=== PATIENT | female | born 1970 | race Caucasian/White ===

== ENCOUNTER 2017-01-28 11:47 | Inpatient (IN) | payer MEDICAID ==
[~2017-01-28] VITALS: Ht 162.6 cm; Wt 97.7 kg
[2017-01-28 11:50] VITALS: Ht 162.6 cm; Wt 97.7 kg
[2017-01-28] MEDS ORDERED: PREN1TAB17 PO (12:01)
--- NOTE | 2017-01-28 12:57 | RADRPT ---
PROCEDURE: OB ultrasound for biophysical profile CLINICAL INDICATION: PIH. TECHNIQUE: Multiple sonographic images of the pelvis were obtained. Transabdominal view of the gr avid uterus are available for review. The images were reviewed on a PACS workstation. COMPARISON: None FINDINGS: breathing movement = 2/2 tone = 2/2 motion = 2/2 Quantitative amniotic fluid volume = 0/2 HOLLIE = 2.1 cm Single live intrauterine with cardiac activity at 179 beats per minute. There is a anterior placenta without previa or abruption. IMPRESSION: 1. Single living intrauterine gestation in cephalic position. 2. Biophysical profile = 8. 3. HOLLIE = 2.1 cm consistent with oligohydramnios. Note: A call report was made to Peggy QUINONES on 01/28/2017 12:56:14 PM. RPTAT: [facility] Physician Mohit Date Time Electronically viewed and signed by Physician Mohit on 01/28/2017 12:57 CHANTELL/
[2017-01-28 13:03] LABS: BASOPHILS % 0.3 % (0.0-2.0); EOSINOPHILS # 0.1 10^3/ul (0.0-0.5); EOSINOPHILS % 0.6 % (0.0-7.0); HEMATOCRIT 35.8 % (37.0-47.0); HEMOGLOBIN 11.5 g/dl (12.0-16.0); LYMPHOCYTES # 1.6 10^3/ul (0.8-2.9); LYMPHOCYTES % 17.5 % (15.0-51.0); MEAN CORPUSCULAR HEMOGLOBIN 28.8 pg (29.0-33.0); MEAN CORPUSCULAR HGB CONC 32.1 g/dl (32.0-37.0); MEAN CORPUSCULAR VOLUME 89.5 fl (82.0-101.0); MONOCYTE # 0.5 10^3/ul (0.3-0.9); MONOCYTES % 5.4 % (0.0-11.0); NEUTROPHIL # 6.7 10^3/ul (1.6-7.5); NEUTROPHILS % 75.2 % (39.0-77.0); PLATELET COUNT 346 10^3/UL (140-415); WHITE BLOOD COUNT 8.9 10^3/ul (4.8-10.8)
[2017-01-28 13:23] LABS: ALBUMIN 3.4 g/dl (3.3-4.9); ALBUMIN/GLOBULIN RATIO 1.03; BILIRUBIN,INDIRECT 0.2 mg/dl (0-1.1); BILIRUBIN,TOTAL 0.2 mg/dl (0.2-1.3); CALCIUM 8.9 mg/dl (8.4-10.2); CREATININE 0.63 mg/dl (0.44-1.00); POTASSIUM 3.8 mmol/L (3.5-5.1); TOTAL PROTEIN 6.7 g/dl (6.1-8.1); URIC ACID 4.8 mg/dl (3.1-7.9)
--- NOTE | 2017-01-28 13:28 | TRIAGE ---
OB Triage Datetime Report Generated by CPN: 01/28/2017 13:27 Datetime: 01/28/2017 13:13 Labor Evaluation Frequency: 0 Pattern: Normal: <= 5 Contractions in 10 Minutes Heart Rate FHR Baseline Rate: 155 Monitor Mode: External US Variability: Moderate 6-25 bpm Accelerations: 15X15 Decelerations: None Category: Category I Pain Presence: None/Denies Pain Type: N/A Datetime: 01/28/2017 12:35 Comments: US AT BEDSIDE Datetime: 01/28/2017 12:04 Stage of : OB Triage Assessment Type: Triage Maternal Assessment Level of Consciousness: Fully Conscious DTR's/Clonus: DTRs 2+; No Clonus Headache: Denies Blurred Vision: No Respiratory Effort: Unlabored; Regular Rhythm; Equal Expansion Breath Sounds, Left: Clear and Equal Breath Sounds, Right: Clear and Equal Nausea/Vomiting: Denies RUQ Epigastric Pain: Denies Lower Extremities Edema: Bilateral Lower Extremities Degree: 1+ Upper Extremities Edema: None Degree: None Facial Edema: None Temperature Route: Oral Fall Risk Assessment History of Falling: (0) No Secondary Diagnosis: (0) No Ambulatory Aid: (0) Bedrest/Nurse Assist IV Therapy: (0) No Gait: (0) Normal/Bedrest/Immobile Mental Status: (0) Oriented to Own Ability Fall Score: 0 Fall Risk Score Definition: No Risk: No action required Labor Evaluation Frequency: 0 Monitor Mode: External Pattern: Normal: <= 5 Contractions in 10 Minutes Resting Tone [place]: Relaxed Heart Rate FHR Baseline Rate: 155 Monitor Mode: External US Variability: Moderate 6-25 bpm Accelerations: 15X15 Decelerations: None Category: Category I Pain Assessment Pain Scale: 0 Pain Presence: None/Denies Pain Type: N/A Datetime: 01/28/2017 12:02 Time of Arrival: 01/28/2017 11:40 EGA: 37.6 Arrived By: Ambulatory Arrived From: Dr. Marion Chief Complaint: SENT FROM CLINIC FOR ELEVATED B/P Movement: Present Contractions: Denies/Absent Rupture of Membranes: Denies Vaginal Bleeding: None Vaginal Discharge: Denies Recent Sexual Intercouse: Denies Abdominal Trauma: Not Applicable Time Provider Notified: 01/28/2017 13:22 Provider Notified: DR. COUGHLIN Initial Plan: [facility] WORK UP AND MONITORING
[2017-01-28] MEDS ORDERED: CARBOPROST 250 MCG INJ IM PRN ×2 (14:00→20:30)
[2017-01-28] MEDS ORDERED: METHYLERGONOVINE 0.2 MG INJ IM PRN ×2 (14:00→20:30)
[2017-01-28] MEDS ORDERED: BUTORPHANOL 2 MG INJ IV PRN ×2 (14:00→20:30)
[2017-01-28] MEDS ORDERED: MISOPROSTOL 200 MCG TAB PR PRN ×2 (14:00→20:30)
[2017-01-28] MEDS ORDERED: LIDOCAINE 1% (MPF) 30 ML INJ INJ PRN ×2 (14:00→20:30)
[2017-01-28] MEDS ORDERED: OXYTOCIN 30 UNITS/LR 500 ML IV PRN ×2 (14:00→20:30)
[2017-01-28] MEDS ORDERED: LACTATED RINGER'S 1,000 ML IV PRN ×2 (14:00→20:30)
[2017-01-28] MEDS ORDERED: OXYTOCIN 30 UNITS/LR 500 ML IV SCH ×6 (14:00→20:30)
[2017-01-28 14:49] LABS: ADD UMIC YES; UR ASCORBIC ACID NEGATIVE (NEGATIVE); UR BACTERIA FEW /HPF (NONE SEEN); UR BILIRUBIN (Dip) NEGATIVE (NEGATIVE); UR BLOOD (Dip) 1+ mg/dL (NEGATIVE); UR CLARITY CLEAR (CLEAR); UR COLOR YELLOW (YELLOW); UR GLUCOSE (Dip) NEGATIVE (NEGATIVE); UR KETONES (Dip) NEGATIVE (NEGATIVE); UR LEUKOCYTE ESTERASE (Dip) NEGATIVE Leu/ul (NEGATIVE); UR NITRITE (Dip) NEGATIVE (NEGATIVE); UR RBC 0 /HPF (0-5); UR SPECIFIC GRAVITY (Dip) 1.015 (1.003-1.030); UR TOTAL PROTEIN (Dip) NEGATIVE (NEGATIVE); UR UROBILINOGEN (Dip) NEGATIVE (NEGATIVE)
[2017-01-28] MEDS: LACTATED RINGER'S 1,000 ML IV SCH ×2 (15:13→17:00)
[2017-01-28 16:07] LABS: INR 1.02; PROTIME 13.4 Sec (12.2-14.2)
[2017-01-28 16:08] LABS: PARTIAL THROMBOPLASTIN TIME 28.1 Sec (25.0-35.0)
[2017-01-28] MEDS ORDERED: LACTATED RINGER'S 1,000 ML IV SCH (20:21)
[2017-01-28] MEDS ORDERED: IBUPROFEN 600 MG TAB PO PRN (20:30)
[2017-01-28] MEDS ORDERED: FENTAnyl 2MCG/ML-ROPIV 0.2% 100 ML ONE (22:00)
--- NOTE | 2017-01-28 22:27 | HP ---
Date/Time of Note Date/Time of Note DATE: 01/28/17 TIME: 22:26 OB - History Hx of Present Free Text/Dictation term induced for oligo Care: Good Care Ultrasounds: Normal mid trimester US Obstetrical Complications: None Medical Complications: None Past Family/Social History * Past Medical, Surgical, Family and Obstetric Histories reviewed from chart. OB Admission Exam Physical Exam HEENT: WNL Heart: Rhythm Normal Lungs: Clear, Equal Abdomen: WNL Extremities: Normal Reflexes: Normal Cervical Dilatation: 10cm Effacement: 100% Station: +3 Membranes: Ruptured Amniotic Fluid: Clear Heart Rate: 120's Accelerations: Accelerations Present Decelerations: No Decelerations Varibility: Moderate Contractions on Admission: 6-10 Minutes Apart Intensity: Moderate Last 72 hours Lab Results CBC & BMP 01/28/17 12:32 Liver Function Test 01/28/17 12:32 Alanine Aminotransferase (ALT/SGPT) 29 Albumin 3.4 Alkaline Phosphatase 131 H Aspartate Amino Transf (AST/SGOT) 27 Direct Bilirubin 0.00 Total Protein 6.7 OB Assessment/Plan Reason for admission: induction of labor Plan: Induction CLARISSA COUGHLIN MD Jan 28, 2017 22:27
--- NOTE | 2017-01-28 22:28 | LDN ---
Date/Time of Note Date/Time of Note DATE: 01/28/17 TIME: 22:28 Delivery Summary NSD W/O COMPLICATIONS Placenta Delivered: Spontaneously Meconium: none, Light Episiotomy: No Estimated blood loss: 300 Sponge & Needle done & correct: Yes All needle counts correct: Yes Any foreign bodies felt in the: No Problems: CLARISSA COUGHLIN MD Jan 28, 2017 22:28
[2017-01-29] VITALS: BP 140/92; PULSE 87; RESP 18
[2017-01-29] MEDS ORDERED: DIPHENHYDRAMINE 50 MG INJ IV PRN
[2017-01-29] MEDS ORDERED: FENTAnyl 2MCG/ML-ROPIV 0.2% 100 ML BAG EPI SCH
[2017-01-29] MEDS ORDERED: NALOXONE (0.4 MG/ML) INJ IV PRN
[2017-01-29] MEDS ORDERED: KETOROLAC 30 MG INJ IV PRN
[2017-01-29] MEDS ORDERED: HYDROmorphONE 0.5 MG/0.5 ML SYG IV PRN ×2
[2017-01-29] MEDS ORDERED: ONDANSETRON 4 MG INJ IV PRN
[2017-01-29] MEDS ORDERED: LACTATED RINGER'S 1,000 ML IV* SCH (00:17)
[2017-01-29] MEDS: OXYTOCIN 30 UNITS/LR 500 ML IV SCH ×2 (00:17→04:17)
[2017-01-29] MEDS ORDERED: BENZOCAINE 20% 56 ML SPRAY TOP PRN (00:30)
[2017-01-29] MEDS ORDERED: SENNA/DOCUSATE NA (8.6MG/50MG) TAB PO PRN (00:30)
[2017-01-29] MEDS ORDERED: METHYLERGONOVINE 0.2 MG INJ IM PRN (00:30)
[2017-01-29] MEDS ORDERED: ACETAMINOPHEN 325 MG TAB PO PRN (00:30)
[2017-01-29] MEDS ORDERED: DIPHENHYDRAMINE 25 MG CAP PO PRN (00:30)
[2017-01-29] MEDS ORDERED: WITCH HAZEL/GLYCERIN PAD PR PRN (00:30)
[2017-01-29] MEDS ORDERED: OXYTOCIN 30 UNITS/LR 500 ML IV PRN (00:30)
[2017-01-29] MEDS ORDERED: MISOPROSTOL 200 MCG TAB PR PRN (00:30)
[2017-01-29] MEDS ORDERED: LANOLIN 7 GM TUBE TOP PRN (00:30)
[2017-01-29] MEDS ORDERED: ZOLPIDEM 5 MG TAB PO PRN (00:30)
[2017-01-29] MEDS ORDERED: CARBOPROST 250 MCG INJ IM PRN (00:30)
[2017-01-29] MEDS ORDERED: HYDROCODONE/APAP (5/325) TAB PO PRN (00:30)
[2017-01-29] MEDS ORDERED: MAGNESIUM HYDROXIDE 30ML CUP PO PRN (00:30)
[2017-01-29 04:03] VITALS: BP 134/78; PULSE 84; RESP 18
[2017-01-29] MEDS: IBUPROFEN 800 MG TAB PO SCH ×4 (05:27→23:43)
[2017-01-29 08:15] VITALS: BP 110/53; PULSE 77; RESP 17
[2017-01-29 10:37] LABS: BASOPHILS % 0.4 % (0.0-2.0); EOSINOPHILS # 0.1 10^3/ul (0.0-0.5); EOSINOPHILS % 1.1 % (0.0-7.0); HEMATOCRIT 35.4 % (37.0-47.0); HEMOGLOBIN 11.7 g/dl (12.0-16.0); LYMPHOCYTES # 1.9 10^3/ul (0.8-2.9); LYMPHOCYTES % 19.2 % (15.0-51.0); MEAN CORPUSCULAR HEMOGLOBIN 29.4 pg (29.0-33.0); MEAN CORPUSCULAR HGB CONC 33.1 g/dl (32.0-37.0); MEAN CORPUSCULAR VOLUME 88.9 fl (82.0-101.0); MEAN PLATELET VOLUME 10.3 fl (7.4-10.4); MONOCYTE # 0.3 10^3/ul (0.3-0.9); MONOCYTES % 3.5 % (0.0-11.0); NEUTROPHIL # 7.4 10^3/ul (1.6-7.5); PLATELET COUNT 347 10^3/UL (140-415); RED BLOOD COUNT 3.98 10^6/ul (4.20-5.40); RED CELL DISTRIBUTION WIDTH 13.7 % (11.5-14.5); WHITE BLOOD COUNT 9.9 10^3/ul (4.8-10.8)
--- NOTE | 2017-01-29 11:48 | QN ---
Documentation Comment doing well d/c home tomorrow CLARISSA COUGHLIN MD Jan 29, 2017 11:48
--- NOTE | 2017-01-29 11:48 | DS ---
Date/Time of Note Date/Time of Note DATE: 01/29/17 TIME: 11:47 Discharge Summary Admission/Discharge Info Admit Date/Time Jan 28, 2017 at 13:22 Discharge Date/Time Discharge Diagnosis term . oligo hyrdramnios Patient Condition: Stable Hospital Course unremarkable Home Meds Reported Medications Vit-Iron Fumarate-FA ( Tablet) 1 Each Tablet, 1 TAB PO DAILY, TAB 01/28/17 Primary Care Provider Care Physician No Primary Pending Labs Laboratory Tests Test 01/28/17 12:32 01/28/17 13:57 01/28/17 15:02 01/29/17 10:09 White Blood Count 8.910^3/ul (4.8-10.8) 9.910^3/ul (4.8-10.8) Red Blood Count 4.0010^6/ul (4.20-5.40) 3.9810^6/ul (4.20-5.40) Hemoglobin 11.5g/dl (12.0-16.0) 11.7g/dl (12.0-16.0) Hematocrit 35.8% (37.0-47.0) 35.4% (37.0-47.0) Mean Corpuscular Volume 89.5fl (82.0-101.0) 88.9fl (82.0-101.0) Mean Corpuscular Hemoglobin 28.8pg (29.0-33.0) 29.4pg (29.0-33.0) Mean Corpuscular Hemoglobin Concent 32.1g/dl (32.0-37.0) 33.1g/dl (32.0-37.0) Red Cell Distribution Width 14.0% (11.5-14.5) 13.7% (11.5-14.5) Platelet Count 82824^3/UL (140-415) 95419^3/UL (140-415) Mean Platelet Volume 10.0fl (7.4-10.4) 10.3fl (7.4-10.4) Neutrophils % 75.2% (39.0-77.0) 75.0% (39.0-77.0) Lymphocytes % 17.5% (15.0-51.0) 19.2% (15.0-51.0) Monocytes % 5.4% (0.0-11.0) 3.5% (0.0-11.0) Eosinophils % 0.6% (0.0-7.0) 1.1% (0.0-7.0) Basophils % 0.3% (0.0-2.0) 0.4% (0.0-2.0) Nucleated Red Blood Cells % 0.0/100WBC (0.0-0.0) 0.0/100WBC (0.0-0.0) Neutrophils # 6.710^3/ul (1.6-7.5) 7.410^3/ul (1.6-7.5) Lymphocytes # 1.610^3/ul (0.8-2.9) 1.910^3/ul (0.8-2.9) Monocytes # 0.510^3/ul (0.3-0.9) 0.310^3/ul (0.3-0.9) Eosinophils # 0.110^3/ul (0.0-0.5) 0.110^3/ul (0.0-0.5) Basophils # 0.010^3/ul (0.0-0.1) 0.010^3/ul (0.0-0.1) Nucleated Red Blood Cells # 0.010^3/ul (0.0-0.0) 0.010^3/ul (0.0-0.0) Sodium Level 137mmol/L (135-144) Potassium Level 3.8mmol/L (3.5-5.1) Chloride Level 108mmol/L (97-110) Carbon Dioxide Level 21mmol/L (21-31) Anion Gap 12 (8-16) Blood Urea Nitrogen 8mg/dl (7-20) Creatinine 0.63mg/dl (0.44-1.00) Glucose Level 119mg/dl (70-220) Uric Acid 4.8mg/dl (3.1-7.9) Calcium Level 8.9mg/dl (8.4-10.2) Total Bilirubin 0.2mg/dl (0.2-1.3) Direct Bilirubin 0.00mg/dl (0.00-0.20) Indirect Bilirubin 0.2mg/dl (0-1.1) Aspartate Amino Transf (AST/SGOT) 27IU/L (15-46) Alanine Aminotransferase (ALT/SGPT) 29IU/L (13-69) Alkaline Phosphatase 131IU/L (42-121) Total Protein 6.7g/dl (6.1-8.1) Albumin 3.4g/dl (3.3-4.9) Globulin 3.30g/dl (1.3-3.2) Albumin/Globulin Ratio 1.03 Rapid Plasma Reagin NONREACTIVE (NR) Urine Color YELLOW (YELLOW) Urine Clarity CLEAR (CLEAR) Urine pH 7.0 (5.0-9.0) Urine Specific [place] 1.015 (1.003-1.030) Urine Ketones NEGATIVEmg/dL (NEGATIVE) Urine Nitrite NEGATIVEmg/dL (NEGATIVE) Urine Bilirubin NEGATIVEmg/dL (NEGATIVE) Urine Urobilinogen NEGATIVEmg/dL (NEGATIVE) Urine Leukocyte Esterase NEGATIVELeu/ul (NEGATIVE) Urine Microscopic RBC 0/HPF (0-5) Urine Microscopic WBC 0/HPF (0-5) Urine Bacteria FEW/HPF (NONE SEEN) Urine Hemoglobin 1+mg/dL (NEGATIVE) Urine Glucose NEGATIVEmg/dL (NEGATIVE) Urine Total Protein NEGATIVEmg/dl (NEGATIVE) Prothrombin Time 13.4Sec (12.2-14.2) Prothrombin Time Ratio 1.0 INR International Normalized Ratio 1.02 Activated Partial Thromboplast Time 28.1Sec (25.0-35.0) CLARISSA COUGHLIN MD Jan 29, 2017 11:48
--- NOTE | 2017-01-29 11:49 | PD.PPDC ---
[facility]TER Discharge Instruction Condition Patient Condition: Stable Diet Diet: Resume Regular Diet Activity/Restrictions Activity: Normal Activity May Shower Restrictions: No Exercising No Lifting No Driving No Sexual Activity Nothing in the Vagina No [place] No Tampons, douche Wound/Drain Care Instructions Wound/Drain Care Instructions: Wash with soap and water Keep clean and dry Follow-up Follow-up with Physician: 3, Week/Weeks Return to clinic for VERIFY REP Instructions: Fever greater than 101 Chills Worsening abdominal pain Excessive Vaginal Bleeding More than 2 pads per hour Unable to tolerate diet OB Instructions: Breast Tenderness Depression Blurried Vision Headache Surgical Instructions: Incisional Drainage Incisional Redness CLARISSA COUGHLIN MD Jan 29, 2017 11:49
[2017-01-29 12:00] VITALS: BP 133/78; PULSE 76; RESP 19
[2017-01-29 16:00] VITALS: BP 124/70; PULSE 72; RESP 17
[2017-01-29 20:15] VITALS: BP 136/67; PULSE 80; RESP 18
[2017-01-30] MEDS: IBUPROFEN 800 MG TAB PO SCH ×3 (05:35→18:17)
[2017-01-30 08:00] VITALS: BP_SYST 142; BP_SYST 145; BP_DIAS 88; BP_DIAS 92; PULSE 79; RESP 18; RESP 20
[2017-01-30] MEDS ORDERED: DIPHTH/TET/ACEL PERTUSS (ADULT) 0.5 ML VIAL IM* ONE (09:00)
[2017-01-30] MEDS ORDERED: MEASLES,MUMPS,RUBELLA VACCINE INJ SC* ONE (09:00)
[2017-01-30] MEDS ORDERED: VARICELLA VACCINE LIVE/PF 1,350 UNIT/0.5 ML ML SC* ONE (09:00)
[2017-01-30 16:23] VITALS: BP 135/75; PULSE 75; RESP 18
[2017-01-30 20:00] VITALS: BP 129/70; PULSE 97; RESP 20
== END 2017-01-30 20:30 | disposition home or self-care (01) | DRG 775 ==
LOC: OBT 11:47 → L-D 11:47 → OBT 13:34 → L-D 21:24 → PP1 23:58
PROVIDERS: ADMIT Obstetrics & Gynecology; ATTEND Obstetrics & Gynecology
PROC: 10E0XZZ Delivery of Products of Conception, External Approach (ICD-10-PCS; principal; 2017-01-28)
PROC: 3E0P3VZ Introduction of Hormone into Female Reproductive, Percutaneous Approach (ICD-10-PCS; 2017-01-28)
DX: O99.214 Obesity complicating childbirth (principal); O41.03X0 Oligohydramnios, third trimester, not applicable or unspecified; E66.01 Morbid (severe) obesity due to excess calories; Z68.37 Body mass index [BMI] 37.0-37.9, adult; Z3A.37 37 weeks gestation of pregnancy; Z37.0 Single live birth
CPT/HCPCS: 62319; 76818; 80053; 81001; 84560; 85025; 85610; 85730; 86592; 86900; 86901; 90715; 90716; G0463; J2590; J3010; J7120